=== PATIENT | female | born 1990 | race Native Hawaiian/Other Pacific Islander ===

== ENCOUNTER 2016-09-06 19:40 | Emergency (ER) | payer OTHER ==
[~2016-09-06] VITALS: Ht 167.6 cm; Wt 83.0 kg
[2016-09-06 19:53] VITALS: TEMP 98.5
[2016-09-06 20:26] LABS: PLATELET COUNT 170 K/uL (152-353)
[2016-09-06 20:35] LABS: POTASSIUM 3.4 mmol/L (3.6-5.2); SODIUM 135 mmol/L (136-145)
[2016-09-06 21:06] VITALS: BP 130/81
== END 2016-09-06 21:06 | disposition home or self-care (01) ==
LOC: ED 19:40
DX: J02.0 Streptococcal pharyngitis (principal)
CPT/HCPCS: 36415; 80053; 85027; 87804; 87880; 96372; 99283; J0696

== ENCOUNTER 2016-12-08 21:24 | Emergency (ER) | payer OTHER ==
[~2016-12-08] VITALS: Ht 167.6 cm; Wt 86.2 kg
[2016-12-08 22:35] VITALS: BP 144/81; TEMP 98.6
== END 2016-12-08 22:37 | disposition home or self-care (01) ==
LOC: ED 21:24
DX: H60.503 Unspecified acute noninfective otitis externa, bilateral (principal)
CPT/HCPCS: 99283

== ENCOUNTER 2017-06-05 08:10 | Emergency (ER) | payer OTHER ==
[~2017-06-05] VITALS: Ht 167.6 cm; Wt 86.2 kg
[2017-06-05 09:19] VITALS: TEMP 97.7
[2017-06-05 10:35] LABS: PLATELET COUNT 215 K/uL (152-353)
[2017-06-05 11:20] LABS: POTASSIUM 3.6 mmol/L (3.6-5.2)
[2017-06-05 11:52] VITALS: BP 132/78
== END 2017-06-05 11:58 | disposition home or self-care (01) ==
LOC: ED 08:10
DX: M54.6 Pain in thoracic spine (principal); M54.9 Dorsalgia, unspecified; M41.9 Scoliosis, unspecified; K52.9 Noninfective gastroenteritis and colitis, unspecified
CPT/HCPCS: 36415; 74022; 80053; 85027; 99283

== ENCOUNTER 2018-04-09 17:11 | Emergency (ER) | payer OTHER ==
[~2018-04-09] VITALS: Ht 167.6 cm; Wt 90.7 kg
[2018-04-09 18:27] LABS: PLATELET COUNT 204 K/uL (152-353)
[2018-04-09 18:30] LABS: POTASSIUM 3.2 mmol/L (3.6-5.2)
[2018-04-09 22:16] VITALS: BP 141/89; TEMP 98.1
== END 2018-04-09 22:20 | disposition home or self-care (01) ==
LOC: ED 17:11
PROVIDERS: Family Medicine
DX: N83.201 Unspecified ovarian cyst, right side (principal); K29.70 Gastritis, unspecified, without bleeding
CPT/HCPCS: 36415; 80053; 81000; 81025; 85027; 96374; 96375; 99284; J1885; J2405; J3490; Q9963

== ENCOUNTER 2019-11-25 05:55 | Emergency (ER) | payer OTHER ==
[~2019-11-25] VITALS: Ht 167.6 cm; Wt 87.5 kg
[2019-11-25 08:05] VITALS: BP 122/79; TEMP 98.3
== END 2019-11-25 08:15 | disposition home or self-care (01) ==
LOC: ED 05:55
DX: S93.692A Other sprain of left foot, initial encounter (principal); X50.9XXA Other and unspecified overexertion or strenuous movements or postures, initial encounter; Y93.68 Activity, volleyball (beach) (court); Y92.89 Other specified places as the place of occurrence of the external cause
CPT/HCPCS: 99282; 99283

== ENCOUNTER 2020-02-10 00:20 | Emergency (ER) | payer OTHER ==
[~2020-02-10] VITALS: Ht 170.2 cm; Wt 97.5 kg
[2020-02-10 01:21] LABS: PLATELET COUNT 184 K/uL (152-353); POTASSIUM 4.1 mmol/L (3.6-5.2)
[2020-02-10 02:58] VITALS: BP 125/83; TEMP 98.4
== END 2020-02-10 02:58 | disposition home or self-care (01) ==
LOC: ED 00:20
PROVIDERS: Hospitalist
DX: K27.9 Peptic ulcer, site unspecified, unspecified as acute or chronic, without hemorrhage or perforation (principal); R19.7 Diarrhea, unspecified; R11.2 Nausea with vomiting, unspecified
CPT/HCPCS: 36415; 80053; 81000; 81025; 82150; 83690; 85027; 96360; 96361; 96365; 96375; 99284; J0744; J2405

== ENCOUNTER 2020-06-30 20:27 | Emergency (ER) | payer OTHER ==
[~2020-06-30] VITALS: Ht 170.2 cm; Wt 99.3 kg
[2020-06-30 21:14] LABS: PLATELET COUNT 207 K/uL (152-353)
[2020-06-30 21:21] LABS: POTASSIUM 3.9 mmol/L (3.6-5.2); SODIUM 142 mmol/L (136-145)
[2020-06-30 21:29] LABS: PARTIAL THROMBOPLASTIN TIME 29.4 SECONDS (24.5-33.6)
[2020-06-30 22:30] VITALS: BP 120/80; TEMP 98.4
== END 2020-06-30 22:30 | disposition home or self-care (01) ==
LOC: ED 20:27
PROVIDERS: Hospitalist
DX: R00.2 Palpitations (principal); R42 Dizziness and giddiness; T50.5X5A Adverse effect of appetite depressants, initial encounter; Y92.89 Other specified places as the place of occurrence of the external cause
CPT/HCPCS: 80053; 81000; 81025; 82550; 82553; 83880; 84484; 85027; 85610; 85730; 93005; 96360; 96375; 99284; J2405